=== PATIENT | male | born 1965 | race Caucasian/White ===

== ENCOUNTER 2017-07-16 08:13 | Inpatient (IN) | payer OTHER ==
[~2017-07-16] VITALS: Ht 165.1 cm; Wt 72.2 kg
--- NOTE | 2017-07-16 08:33 | NUR ---
PT BIB AMBULANCE FROM [facility] FOR C/O N/V AND ABDOMINAL PAIN. PER MEDICS PT HAD 2 EPISODES OF EMESIS WITH BRIGHT RED BLOOD RAW [employer]ODUCTS DIRECTOR. PT CURRENTLY DENIES ANY NAUSEA BUT STATES HE HAS 7/10 GENERALIZED ABDOMINAL PAIN. PT HAS AN 18G TO LAC ESTABLISHED BY MEDICS RAW PRODUCTS DIRECTOR. PT RECIEVED APPROX 600ML NS RAW PRODUCTS DIRECTOR. PT ARRIVED AWAKE AND ALERT, RESP EVEN AND UNLABORED. PT HAS A HX OF ESOPHAGEAL VARCIES AND HAD SCOPE PROCEDURE DONE ON 07/08/2017
[2017-07-16 09:29] LABS: CALCIUM 7.5 mg/dL (8.5-10.1); CARBON DIOXIDE 25.6 mmol/L (21-32); CHLORIDE SERUM 113 mmol/L (98-107); GFR1 > 60 mL/min; GLUCOSE SERUM 111 mg/dL (74-106); POTASSIUM SERUM 4.2 mmol/L (3.5-5.1); SODIUM SERUM 142 mmol/L (136-145)
[2017-07-16 09:32] LABS: BASOPHIL % 0.3 % (0-2); PLATELET COUNT 88 x10^3mcL (130-400); RED CELL DISTRIBUTION WIDTH 14.7 % (11.5-14.5)
[2017-07-16 09:33] LABS: ALBUMIN 2.1 g/dL (3.4-5.0); ALKALINE PHOSPHATASE 102 U/L (46-116); ALT/SGPT 41 U/L (16-63); AMYLASE 78 U/L (25-115); AST/SGOT 42 U/L (15-37); BILIRUBIN TOTAL 1.66 mg/dL (0.20-1.00); LIPASE 270 IU/L (73-393)
[2017-07-16] MEDS ORDERED: FLUOCINONIDE0.05% TOP (09:55)
[2017-07-16] MEDS ORDERED: PROPRANOLOL HCL10 MG PO (09:56)
[2017-07-16] MEDS ORDERED: LASIX20 MG PO (09:56)
[2017-07-16] MEDS ORDERED: ENFAMIL D-V400 IU/ML PO (09:56)
[2017-07-16] MEDS ORDERED: ALDACTONE25 MG PO (09:56)
[2017-07-16] MEDS ORDERED: LACTULOSE10 GM/152 PO (09:57)
[2017-07-16] MEDS ORDERED: GOOD SENSE OMEP20 MG PO (09:57)
[2017-07-16] MEDS ORDERED: CLARITIN10 MG PO (09:57)
[2017-07-16] MEDS ORDERED: CLEAR EYES COMP15 ML OP (09:57)
--- NOTE | 2017-07-16 10:28 | NUR ---
PT LAYING IN GURNEY IN POSITION OF COMFORT, RESP EVEN AND UNLABORED. CORRECTIONAL OFFICERS AT BEDSIDE. PT DENIES ANY NAUSEA AT THIS TIME
--- NOTE | 2017-07-16 10:28 | NUR ---
MSE COMPLETED BY DR ISLAS
--- NOTE | 2017-07-16 11:00 | NUR ---
RECEIVED THE PATIENT ORIENTED TO PERSON, PLACE AND TIME. PATIENT DENIED SHORTNESS OF BREATH. PATIENT STATED HAVING EPISODES OF NAUSEA DENIED VOMITING. PATIENT STATED HAVING EPISODES OF ABD. ACHING. THE ABD. PAIN 3/10 AND TOLERABLE AT THIS TIME. SL TO LAC. TELE # 11 APPLIED. VS CHECKED. ASSESSMENT WAS IMPLEMENT. CALL LIGHT WITHIN REACH. SIDE RAILS UP X3. THE GUARDS AT BEDSIDE.
[2017-07-16 11:06] VITALS: BP 99/49
--- NOTE | 2017-07-16 12:10 | NUR ---
LATE ENTRY: DR. LAMAS IN TO SEE THE PATIENT AND WAS AWARE OF THE PATIENT'S STATUS AND LAB RESULTS TODAY.
--- NOTE | 2017-07-16 17:02 | NUR ---
DR. GUIDRY IN TO SEE THE PATIENT.
[2017-07-16 17:40] VITALS: BP 112/62
--- NOTE | 2017-07-16 17:44 | NUR ---
ANOTHER H/L #20G WAS INSERTED TO THE PATIENT'S RFA FOR SANDOSTATIN DRIP.
--- NOTE | 2017-07-16 18:26 | NUR ---
THE PATIENT DID NOT VOMIT OR HAD ANY SITE OF GI BLEED SINCE COMING TO THE ROOM. SANDOSTATIN DRIP WAS STARTED AT 1744 AND STILL IN PROGRESS.
--- NOTE | 2017-07-16 19:20 | NUR ---
PATIENT RECEIVED RESTING ALERT AND ORIENTED X 4. NO DISTRESS NOTED. NO C/O PAIN AT THIS TIME. IV SITE TO LEFT AC, PATENT AND INTACT. IV SITE TO RIGHT FOREARM, PATENT AND INTACT. IV FLUIDS INFUSING PER DOCTOR'S ORDER. BED IN LOWEST POSITION. CALL LIGHT WITHIN REACH. WILL CONTINUE TO MONITOR.
[2017-07-16 21:14] VITALS: BP 102/56
--- NOTE | 2017-07-16 21:45 | NUR ---
CONSENT OBTAINED FOR EGD SCHEDULED FOR 07/17/17.
[2017-07-17 05:06] VITALS: BP 105/57
--- NOTE | 2017-07-17 05:16 | NUR ---
PT RESTED THROUGHOUT NIGHT. NO DISTRESS OR DISCOMFORT NOTED. PT DENIES ANY ABDOMINAL PAIN. NO HEMATEMESIS NOTED DURING SHIFT. ALL MEDS ADMINISTERED ORDERED. NO SE NOTED. ALL SAFETY AND COMFORT MEASURES MAINTAINED. CALL LIGHT WITHIN REACH. WILL CONTINUE TO MONITOR
--- NOTE | 2017-07-17 07:45 | NUR ---
RECEIVED PT IN BED,SLEEPING.AROUSABLE. DENIES PAIN THIS TIME. NO SYMPTOMS OF GI BLEED THIS TIME. SAFTEY PRECAUTIONS ON. CIM PT, WANDY AT BEDSIDE.
[2017-07-17 08:00] VITALS: BP 97/58
--- NOTE | 2017-07-17 09:05 | NUR ---
GI LAB NURSE CAME AND TOOK PT TO GI LAB VIA [facility] FOR EGD. CONSENT AND CHECK LIST DONE. V/S STABLE.
[2017-07-17 10:30] VITALS: BP 102/58
--- NOTE | 2017-07-17 10:30 | NUR ---
RECEIVED PT FROM GI LAB AFTER EGD. PT IS AWAKE,ALERT AND ORIENTED X4. VITAL SIGNS STABLE AND DOCUMENTED. DENIES PAIN. NO SIGNS OF GI BLEEDING NOTED. WILL MONITOR.
--- NOTE | 2017-07-17 13:30 | NUR ---
CAME AND SEEN THE PT. PT IS STABLE.
[2017-07-17 14:14] VITALS: BP 112/60
[2017-07-17 16:55] VITALS: BP 108/56
--- NOTE | 2017-07-17 19:10 | NUR ---
PT RESTING IN BED COMFORTABLY. REMAINS STABLE. DENIES PAIN. NO SYMPTOMS OF GI BLEEDING NOTED. GAURDS AT BEDSIDE. GAVE REPORT TO NEXT SHIFT NURSE.
--- NOTE | 2017-07-17 19:30 | NUR ---
PT RESTING IN BED COMFORTABLY, A/O X4. PT DENIES PAIN AND N/V/D AT THIS TIME AND REPORTS NO BLOOD IN STOOL. S/P EGD TODAY 07/17. VITALS WNL. IV FLUIDS INFUSING PER MD ORDER TO RFA. IV PATENT AND INTACT. PT REPORTS NO PAIN AT SITE, NO SIGNS OF REDNESS OR SWELLING. ALL SAFETY MEASURES ENSURED. CALL LIGHT WITHIN REACH. WILL CONTINUE TO MONITOR.
[2017-07-17 21:15] VITALS: BP 93/47
[2017-07-18 04:42] VITALS: BP 98/52
--- NOTE | 2017-07-18 05:52 | NUR ---
PT RESTED WELL THROUGHOUT NIGHT, NO DISTRESS NOTED, NO C/O PAIN/DISCOMFORT. ALL NEEDS MET. SAFETY AND COMFORT MEASURES MAINTAINED. BED IN LOWEST POSITION. CALL LIGHT WITHIN REACH. WILL CONTINUE TO MONITOR.
[2017-07-18 07:13] LABS: CALCIUM 7.4 mg/dL (8.5-10.1); CHLORIDE SERUM 113 mmol/L (98-107); GFR1 > 60 mL/min; GLUCOSE SERUM 109 mg/dL (74-106); POTASSIUM SERUM 3.9 mmol/L (3.5-5.1); SODIUM SERUM 144 mmol/L (136-145)
[2017-07-18 07:19] LABS: BASOPHIL % 0.6 % (0-2)
[2017-07-18 07:21] LABS: PLATELET COUNT 75 x10^3mcL (130-400); RED CELL DISTRIBUTION WIDTH 15.4 % (11.5-14.5)
--- NOTE | 2017-07-18 07:50 | NUR ---
RECEIVED PT IN BED. AWAKE,ALERT AND ORIENTED X4. DENIES ANY PAIN. NO SYMPTOMS OF GI BLEED THIS TIME. SAFTEY PRECAUTIONS ON. WILL MONITOR. WANDY AT BEDSIDE.
[2017-07-18 09:17] VITALS: BP 113/78; BP 136/64
--- NOTE | 2017-07-18 09:35 | NUR ---
PT TELE IS OFF. WENT TO CHECK ON PT .PT IS IN THE BATHROOM ,HE SAID HE IS BRUSING TEETH AND AFTER THAT HE WILL HIS BODY AND GOING TO CHANGE GOWN. PROVIDED NEW GOWN AND WIPES AND TOWEL. PT IS STABLE.MIKADS AT THE DOOR. INFORMED TELE MONITOR.
--- NOTE | 2017-07-18 10:27 | NUR ---
PT DONE WITH WASHING UP AND USE THE RESTROOM AND HAD A BM. BACK ON TELE READING NSR. PT ASHLYN. WANDY AT BEDSIDE.
[2017-07-18 14:26] VITALS: BP 120/50
[2017-07-18 14:57] VITALS: BP 120/50
--- NOTE | 2017-07-18 16:10 | NUR ---
DISCHARGE INSTRUCTIONS GIVEN AND PT SIGNED. PB SIGNED AND SENT WITH PT. IV AND TELE REMOVED. PT STABLE. DENIES PAIN. WAITING FOR TRANSPORTAION.
[2017-07-18 16:54] VITALS: BP 102/56
--- NOTE | 2017-07-18 18:10 | NUR ---
TRANSPORTAION FROM [facility] ARRIVED .WANDY AND AND RN ACCOMPANIED WITH PT TO [facility]. PT DISCHARGED.
== END 2017-07-18 18:08 | disposition other institution (70) | DRG 368 ==
LOC: ED 08:13 → DU 10:14
PROVIDERS: Internal Medicine Gastroenterology; Specialist; ADMIT Internal Medicine
PROC: 0DJ08ZZ Inspection of Upper Intestinal Tract, Via Natural or Artificial Opening Endoscopic (ICD-10-PCS; principal; 2017-07-17 09:00)
DX: I85.01 Esophageal varices with bleeding (principal); G93.40 Encephalopathy, unspecified; K21.9 Gastro-esophageal reflux disease without esophagitis; K74.60 Unspecified cirrhosis of liver; D50.0 Iron deficiency anemia secondary to blood loss (chronic)
CPT/HCPCS: 43235; C9113; J1200; J1610; J2250; J2310; J2354; J3010; J3490